=== PATIENT | female | born 1955 | race Asian ===

== ENCOUNTER 2017-02-18 07:56 | Day surgery (SDC) | payer OTHER ==
[~2017-02-18] VITALS: Ht 158.8 cm; Wt 53.6 kg
[~2017-02-18 07:56] MED LIST: CeFAZolin 1 GM/DEXTROSE 50 ML IV ONE; SODIUM CHLORIDE 0.9% 1,000 ML IV ONE
[2017-02-18] MEDS ORDERED: LORazepam 2 MG/ML VIAL IVP PRN (08:16)
[2017-02-18] MEDS ORDERED: SODIUM CHLORIDE 0.9% 1,000 ML IV ONE ×2 (08:19→14:26)
[2017-02-18] MEDS ORDERED: CeFAZolin 1 GM/DEXTROSE 0 ML IV ONE (08:19)
[2017-02-18 09:10] LABS: BASOPHILS # (AUTO) 0.02 K/uL (0.00-0.20); BASOPHILS % (AUTO) 0.6 % (0.0-2.0); EOSINOPHILS # (AUTO) 0.08 K/uL (0.00-0.70); EOSINOPHILS % (AUTO) 2.24 % (1.0-6.0); HEMATOCRIT 38.5 % (36-46); HEMOGLOBIN 12.4 g/dL (12.0-16.0); LYMPHOCYTES % (AUTO) 26.8 % (22.0-44.0); MEAN CORPUSCULAR HEMOGLOBIN 26.9 pg (26.0-34.0); MEAN CORPUSCULAR HGB CONC 32.1 G/dL (31.0-37.0); MEAN CORPUSCULAR VOLUME 84 fL (80-100); MONOCYTES # (AUTO) 0.4 K/uL (0.1-1.0); MONOCYTES % (AUTO) 10.3 % (2.0-9.0); NEUTROPHILS # (AUTO) 2.1 K/uL (1.8-7.7); PLATELET COUNT (AUTO) 268 K/uL (150-450); RED BLOOD CELL COUNT(AUTO) 4.59 MIL/uL (4.00-5.20); WHITE BLOOD COUNT (AUTO) 3.6 K/uL (4.5-11.0)
[2017-02-18 09:28] LABS: ALANINE AMINOTRANSFERASE 20 U/L (12-78); ALBUMIN 3.9 g/dL (3.4-5.0); ANION GAP 7 mmol/L (8-16); ASPARTATE AMINOTRANSFERASE 18 U/L (15-37); BILIRUBIN,TOTAL 0.5 mg/dL (0.1-1.0); CARBON DIOXIDE 30 mmol/L (22-29); CHLORIDE 105 mmol/L (98-107); CREATININE 0.65 mg/dL (0.60-1.30); GLOMERULAR FILTR. RATE CALC > 60 mL/min (>60); POTASSIUM 4.5 mmol/L (3.5-5.1); SODIUM SERUM 142 mmol/L (136-145); TOTAL PROTEIN, SERUM 8.1 g/dL (6.4-8.2); UREA NITROGEN, BLOOD 11 mg/dL (7-18)
[2017-02-18] MEDS ORDERED: LORazepam 2 MG/ML VIAL ONE (09:54)
[2017-02-18] MEDS ORDERED: SODIUM CHLORIDE 0.9% 1,000 ML IV SCH ×2 (13:42→16:16)
[2017-02-18] MEDS ORDERED: HYDROmorphone 2 MG/ML SYRINGE IVP PRN ×2 (13:45→16:30)
[2017-02-18] MEDS ORDERED: OxyCODONE HCL/ACETAMINOPHEN 5-325 MG TABLET PO PRN ×4 (13:45→16:30)
[2017-02-18] MEDS ORDERED: HYDROmorphone HCL 2 MG TABLET PO ONE ×2 (13:45→16:30)
[2017-02-18] MEDS ORDERED: CeFAZolin 1 GM/DEXTROSE 50 ML IV ONE (14:36)
[2017-02-18] MEDS ORDERED: FentaNYL CITRATE-PF 100 MCG/2 ML VIAL ONE (15:01)
[2017-02-18] MEDS ORDERED: OxyCODONE HCL/ACETAMINOPHEN 5-325 MG TABLET ONE (16:27)
[2017-02-18] MEDS ORDERED: PROMETHAZINE HCL 25 MG/ML VIAL ONE (16:28)
[2017-02-18] MEDS ORDERED: PROMETHAZINE HCL 25 MG TABLET PO ONE (16:30)
[2017-02-18] MEDS ORDERED: HYDROmorphone 2 MG/ML SYRINGE ONE (16:53)
[2017-02-18] MEDS ORDERED: HYDROmorphone 2 MG/ML SYRINGE IM ONE (17:00)
[2017-02-18] MEDS ORDERED: PROMETHAZINE HCL 25 MG/ML VIAL IM ONE (17:00)
[2017-02-19] MEDS ORDERED: FLUMAZENIL 0.1 MG/ML 5 ML VIAL IVP ONE (08:16)
[2017-02-19] MEDS ORDERED: NALOXONE HCL 0.4 MG/ML VIAL ONE (08:17)
[2017-02-19] MEDS ORDERED: FentaNYL CITRATE-PF 100 MCG/2 ML VIAL IVP ONE (09:00)
[2017-02-19] MEDS ORDERED: MIDAZOLAM HCL 2 MG/2 ML VIAL IVP ONE (09:00)
== END 2017-02-18 19:00 | disposition home or self-care (01) ==
LOC: SDS 07:56 → EDSTATUS 10:00 → SDS 19:00
PROVIDERS: ATTEND Radiology Diagnostic Radiology
DX: C50.912 Malignant neoplasm of unspecified site of left female breast (principal); C79.89 Secondary malignant neoplasm of other specified sites; C78.00 Secondary malignant neoplasm of unspecified lung; Z98.890 Other specified postprocedural states; Z82.49 Family history of ischemic heart disease and other diseases of the circulatory system
CPT/HCPCS: 19105 ×2; 36415; 80053; 85025; 99152; 99153; C2618; J0690; J1170; J2060; J2550; J3010; J7030; J2310; J3490